=== PATIENT | female | born 1995 | race Two or more races ===

== ENCOUNTER 2016-12-05 11:40 | Outpatient (CLI) | payer MEDICAID ==
[~2016-12-05] VITALS: Ht 162.6 cm; Wt 74.5 kg
[2016-12-05 12:10] VITALS: BP 129/70
== END 2016-12-05 14:00 | disposition home or self-care (01) ==
LOC: LDOP 11:40
PROVIDERS: ATTEND Student in an Organized Health Care Education/Training Program
DX: O26.893 Other specified pregnancy related conditions, third trimester (principal); O62.9 Abnormality of forces of labor, unspecified; R10.9 Unspecified abdominal pain; Z3A.33 33 weeks gestation of pregnancy
CPT/HCPCS: 36415; 59025; 81001; 82731; 87086; 99211; G0463

== ENCOUNTER 2016-12-13 00:23 | Inpatient (IN) | payer MEDICAID ==
[~2016-12-13] VITALS: Ht 162.6 cm; Wt 80.0 kg
[2016-12-13] MEDS ORDERED: AMPICILLIN 2 GM in SODIUM CHLORIDE 0.9% 100 ML IVPB STA (01:14)
[2016-12-13] MEDS ORDERED: D5%-LACTATED RINGERS 1,000 ML IV SCH (01:14)
[2016-12-13] MEDS ORDERED: OXYTOCIN 30U/ 0.9% NaCL 500ML 500 ML IV ONE (01:14)
[2016-12-13] MEDS ORDERED: NEWBORN KIT ONE (01:23)
[2016-12-13] MEDS ORDERED: OXYTOCIN 30U/ 0.9% NaCL 500ML 500 ML ONE ×2 (01:23→21:06)
[2016-12-13] MEDS ORDERED: MISOPROSTOL 200 MCG TABLET ONE (01:23)
[2016-12-13] MEDS ORDERED: LIDOCAINE 1%, 20ML ONE (01:23)
[2016-12-13] MEDS ORDERED: FENTANYL PF 100 MCG/2ML IV PRN (01:30)
[2016-12-13] MEDS ORDERED: ONDANSETRON 2MG/ML, 2ML IVPush PRN (01:30)
[2016-12-13] MEDS ORDERED: FENTANYL PF 100 MCG/2ML IVPush PRN (01:30)
[2016-12-13] MEDS ORDERED: CALCIUM CARBONATE 500 MG TAB.CHEW PO PRN ×2 (01:30→21:00)
[2016-12-13] MEDS: LACTATED RINGERS 1,000 ML IV SCH ×2 (01:34→06:27)
[2016-12-13] MEDS ORDERED: PLEASE ENTER HEIGHT AND WEIGHT MC SCH (03:00)
[2016-12-13] MEDS: AMPICILLIN 1 GM in SODIUM CHLORIDE 0.9% 50 ML IV SCH ×4 (05:30→18:05)
[2016-12-13] MEDS ORDERED: OXYTOCIN 30U/ 0.9% NaCL 500ML 500 ML IV PRN (08:23)
[2016-12-13] MEDS ORDERED: FENTANYL PF 100 MCG/2ML ONE (11:33)
[2016-12-13] MEDS ORDERED: REMIFENTANIL 3 MG in SODIUM CHLORIDE 0.9% 30 ML IV PRN (14:00)
[2016-12-13] MEDS ORDERED: NALOXONE 0.4 MG/ML, 1ML IVPush PRN (14:00)
[2016-12-13] MEDS ORDERED: REMIFENTANIL 3 MG in SODIUM CHLORIDE 0.9% 30 ML IV SCH (14:20)
[2016-12-13] MEDS ORDERED: REMIFENTANIL 3 MG/30 ML PCA IV ONE (14:45)
[2016-12-13] MEDS ORDERED: [UNRECOGNIZED DRUG - OTHER] IV SCH (17:30)
[2016-12-13] MEDS ORDERED: ACETAMINOPHEN 325 MG TABLET PO PRN (21:00)
[2016-12-13] MEDS ORDERED: ONDANSETRON 2MG/ML, 2ML IV PRN (21:00)
[2016-12-13] MEDS ORDERED: METOCLOPRAMIDE 5 MG/ML, 2ML IV PRN (21:00)
[2016-12-13] MEDS ORDERED: HYDROcodone/APAP 5/325 TABLET PO PRN ×2 (21:00)
[2016-12-13] MEDS ORDERED: OXYcodone/APAP 5/325MG TABLET ONE (21:27)
[2016-12-13] MEDS ORDERED: IBUPROFEN 600 MG TABLET ONE (21:27)
[2016-12-13] MEDS: IBUPROFEN 600 MG TABLET PO PRN (21:29)
[2016-12-13] MEDS: OXYTOCIN 30U/ 0.9% NaCL 500ML 500 ML IV SCH (21:29)
[2016-12-13] MEDS ORDERED: HYDROcodone/APAP 5/325 TABLET ONE (21:31)
[2016-12-13 23:45] VITALS: BP 100/52
[2016-12-14 05:00] VITALS: BP 105/56
[2016-12-14 06:45] VITALS: BP 107/62
[2016-12-14] MEDS: OXYTOCIN 30U/ 0.9% NaCL 500ML 500 ML IV SCH ×2 (06:59→16:59)
[2016-12-14] MEDS: PRENATAL VIT/IRON/FA 1 EACH TABLET PO SCH (09:00)
[2016-12-14] MEDS: DOCUSATE 100 MG CAPSULE PO PRN ×3 (10:36→20:10)
[2016-12-14 12:00] VITALS: BP 107/68
[2016-12-14 15:54] VITALS: BP 109/69
[2016-12-14 20:00] VITALS: BP 101/59
[2016-12-14] MEDS: IBUPROFEN 600 MG TABLET PO PRN (20:10)
[2016-12-15] MEDS: OXYTOCIN 30U/ 0.9% NaCL 500ML 500 ML IV SCH ×2 (02:59→12:59)
[2016-12-15 08:15] VITALS: BP 112/83
[2016-12-15] MEDS: DOCUSATE 100 MG CAPSULE PO PRN (09:30)
[2016-12-15] MEDS: PRENATAL VIT/IRON/FA 1 EACH TABLET PO SCH (09:30)
[2016-12-15] MEDS: IBUPROFEN 600 MG TABLET PO PRN (09:31)
[2016-12-15] MEDS ORDERED: DOCU-30 PO (10:52)
[2016-12-15] MEDS ORDERED: IBUP-1222 PO (10:52)
== END 2016-12-15 14:25 | disposition home or self-care (01) | DRG 775 ==
LOC: LDOP 00:23 → EDIP 01:24 → LDIP 01:33 → 2NW 22:51
PROVIDERS: ADMIT Student in an Organized Health Care Education/Training Program; ATTEND Student in an Organized Health Care Education/Training Program
PROC: 10E0XZZ Delivery of Products of Conception, External Approach (ICD-10-PCS; principal; 2016-12-13)
PROC: 0HQ9XZZ Repair Perineum Skin, External Approach (ICD-10-PCS; 2016-12-13)
DX: O42.913 Preterm premature rupture of membranes, unspecified as to length of time between rupture and onset of labor, third trimester (principal); O60.14X0 Preterm labor third trimester with preterm delivery third trimester, not applicable or unspecified; O76 Abnormality in fetal heart rate and rhythm complicating labor and delivery; O70.0 First degree perineal laceration during delivery; Z37.0 Single live birth; Z3A.35 35 weeks gestation of pregnancy; Z98.1 Arthrodesis status
CPT/HCPCS: 36415; 85025; 86850; 86900; J0290; J3010; J2590; J7120; J7121